=== PATIENT | male | born 1950 | race Two or more races ===

== ENCOUNTER 2021-10-24 23:21 | Emergency (ER) | payer OTHER ==
[~2021-10-24] VITALS: Ht 167.6 cm; Wt 65.8 kg
[2021-10-25] MEDS ORDERED: SIMVASTATIN5 MG (00:08)
[2021-10-25] MEDS ORDERED: KETO10TA2 PO (08:17)
[2021-10-25] MEDS ORDERED: TAMS0.4C PO (08:17)
== END 2021-10-25 08:28 ==
LOC: ER 23:21
DX: N20.0 Calculus of kidney (principal)

== ENCOUNTER 2021-11-18 02:06 | Emergency (ER) | payer OTHER ==
[~2021-11-18] VITALS: Ht 162.6 cm; Wt 74.8 kg
[~2021-11-18 02:06] MED LIST: KETO10TA2 PO; SIMVASTATIN5 MG; TAMS0.4C PO
[2021-11-18] MEDS ORDERED: EC-NAPROSYN500 MG (02:14)
[2021-11-18] MEDS ORDERED: UROXATRAL10 MG (02:14)
[2021-11-18] MEDS ORDERED: PROSCAR5 MG (02:14)
[2021-11-18] MEDS ORDERED: BACTRIM 400-801 EACH (02:14)
== END 2021-11-18 04:17 | disposition home or self-care (01) ==
LOC: ER 02:06
DX: R33.9 Retention of urine, unspecified (principal)